=== PATIENT | female | born 1985 | race Caucasian/White ===

== ENCOUNTER 2017-08-20 12:12 | Inpatient (IN) | payer MEDICARE ==
[2017-08-20 12:37] VITALS: BMI 27.8
--- NOTE | 2017-08-20 12:47 | HP ---
CIWA Score - CIWA Score Nausea/Vomitin-Mild Nausea/No Vomiting Muscle Tremors: 3 Anxiety: 4-Mod. Anxious/Guarded Agitation: 1-Slight > Activity Paroxysmal Sweats: 1-Minimal Palms Moist Orientation: 0-Oriented Tacttile Disturbances: 1-Very Mild Itch/Numbness Auditory Disturbances: 1-Very Mild Visual Disturbances: 1-Very Mild Sensitivity Headache: 2-Mild CIWA-Ar Total Score: 15 Admission ROS BHS - HPI Chief Complaint: I did too much yesterday and my heart was ready to burst I want to stop using Allergies/Adverse Reactions: Allergies Allergy/AdvReac Type Severity Reaction Status Date / Time No Known Allergies Allergy Verified 08/20/17 12:44 History of Present Illness: 32 yo woman here for first time detox from alcohol, also using cocaine. History of black outs but no seizures. Exam Limitations: No Limitations - Ebola screening Have you traveled outside of the country in the last 21 days: No Have you had contact with anyone from an Ebola affected area: No Have you been sick,other than usual withdrawal symptoms: No Do you have a fever: No - Review of Systems Constitutional: Loss of Appetite, Malaise, Changes in sleep EENT: reports: No Symptoms Reported Respiratory: reports: No Symptoms reported Cardiac: reports: Chest Tightness GI: reports: Nausea : reports: Frequency Musculoskeletal: reports: No Symptoms Reported Integumentary: reports: No Symptoms Reported Neuro: reports: Headache Endocrine: reports: No Symptoms Reported Hematology: reports: No Symptoms Reported Psychiatric: reports: Judgement Intact, Mood/Affect Appropiate, Orientated x3, Anxious Other Systems: Reviewed and Negative Patient History - Patient Medical History Hx Anemia: No Hx Asthma: Yes Hx Chronic Obstructive Pulmonary Disease (COPD): No Hx Cancer: No Hx Cardiac Disorders: No Hx Congestive Heart Failure: No Hx Hypertension: No Hx Hypercholesterolemia: No Hx Pacemaker: No HX Cerebrovascular Accident: No Hx Seizures: No Hx Dementia: No Hx Diabetes: No Hx Gastrointestinal Disorders: No Hx Liver Disease: No Hx Genitourinary Disorders: No Hx Sexually Transmitted Disorders: No Hx Renal Disease (ESRD): No Hx Thyroid Disease: No Hx Human Immunodeficiency Virus (HIV): No Hx Hepatitis C: No Hx Depression: Yes (on meds) Hx Suicide Attempt: Yes (hospitalized 2014) Hx Bipolar Disorder: No Hx Schizophrenia: No - Patient Surgical History Past Surgical History: Yes Hx Abdominal Surgery: Yes (alexandre carter 2014) Other Surgical History: plastic surgery fat transfer from back to buttocks 2014 - PPD History Previous Implant?: Yes Documented Results: Negative w/o proof PPD to be Administered?: Yes - Reproductive History Patient is a Female of Child Bearing Age (11 -55 yrs old): Yes - Smoking Cessation Smoking history: Former smoker Have you smoked in the past 12 months: No Initiated information on smoking cessation: No - Substance & Tx. History Hx Alcohol Use: Yes Hx Substance Use: Yes Substance Use Type: Alcohol, Cocaine Hx Substance Use Treatment: No - Substances Abused Alcohol Route: Oral Frequency: Daily Amount used: 2 bottles wine; 15 twelve oz beers Age of first use: 8 Date of Last Use: 08/19/17 Cocaine Route: Inhalation Frequency: 3-6 times per week Amount used: 1.5 gm Age of first use: 14 Date of Last Use: 08/19/17 Family Disease History - Family Disease History Family Disease History: Diabetes: Father (living,), Mother (living,), Heart Disease: Mother, Other: Father, Mother, Brother (one - living - healthy), Sister (one - living - healthy), Son (son age 7 - healthy) Admission Physical Exam S - Vital Signs Vital Signs: Vital Signs - 24 hr 08/20/17 12:35 Temperature 97.8 F Pulse Rate 77 Respiratory 18 Rate Blood Pressure 112/73 - Physical General Appearance: Yes: Nourished, Appropriately Dressed, Mild Distress, Anxious HEENTM: Yes: Hearing grossly Normal, Normocephalic, Normal Voice, Pharynx Normal , Other (piercing lower lip) Respiratory: Yes: Normal Breath Sounds, No Respiratory Distress Neck: Yes: No masses,lesions,Nodules, Supple Breast: Yes: Breast Exam Deferred Cardiology: Yes: Regular Rhythm, Regular Rate Abdominal: Yes: Soft Genitourinary: Yes: Frequency Back: Yes: Normal Inspection Musculoskeletal: Yes: full range of Motion, Gait Steady Extremities: Yes: Normal Inspection, Non-Tender Neurological: Yes: Fully Oriented, Alert, Normal Mood/Affect, Normal Response Integumentary: Yes: Normal Color, Warm Lymphatic: Yes: Within Normal Limits - Diagnostic (1) Alcohol dependence with uncomplicated withdrawal Current Visit: Yes Status: Acute (2) Asthma Current Visit: Yes Status: Acute Qualifiers: Asthma severity: mild Asthma persistence: intermittent (3) Cocaine dependence Current Visit: Yes Status: Acute Qualifiers: Substance use status: uncomplicated Qualified Code(s): F14.20 - Cocaine dependence, uncomplicated Cleared for Admission [facility] - Detox or Rehab [facility] Level of Care: Medically Managed Detox Regimen/Protocol: Librium S Breath Alcohol Content Breath Alcohol Content: 0 Urine Pregancy Test - Result Urine Test Results: Negative- NO Line Present Urine Drug Screen - Results Drug Screen Negative: No Urine Drug Screen Results: ABDI-Cocaine
[2017-08-20] MEDS ORDERED: LOPERAMIDE HCL 2 MG CAPSULE PO PRN (12:54)
[2017-08-20] MEDS ORDERED: P-EPHED 60MG/TRIPROLIDI 2.5MG TABLET PO PRN (12:54)
[2017-08-20] MEDS ORDERED: hydrOXYzine PAMOATE 25 MG CAPSULE (FP) PO PRN (12:54)
[2017-08-20] MEDS ORDERED: MAGNESIUM CITRATE 300 ML BOTTLE PO PRN (12:54)
[2017-08-20] MEDS ORDERED: guaiFENesin/D-METHORPHAN HB 10 ML UNIT-DOSE CUPS PO PRN (12:54)
[2017-08-20] MEDS ORDERED: MAG HYDROX/AL HYDROX/SIMETH 30 ML UNIT-DOSE CUP PO PRN (12:54)
[2017-08-20] MEDS ORDERED: ACETAMINOPHEN 325 MG TABLET (FP) PO PRN (12:54)
[2017-08-20] MEDS ORDERED: MENTHOL/PHENOL 1 EACH UD MM PRN (12:54)
[2017-08-20] MEDS ORDERED: IBUPROFEN 400 MG TABLET (FP) PO PRN (12:54)
[2017-08-20] MEDS ORDERED: chlordiazePOXIDE HCL 25 MG CAPSULE PO PRN (12:54)
[2017-08-20] MEDS ORDERED: MAGNESIUM HYDROX 2400MG/30ML ORAL SUSPENSION 30 ML CUP PO PRN (12:54)
[2017-08-20] MEDS ORDERED: ALBUTEROL SO4 18 GM HFA INHALER IH PRN (12:55)
[2017-08-20] MEDS ORDERED: chlordiazePOXIDE HCL 25 MG CAPSULE PO ONE (15:00)
[2017-08-20] MEDS: chlordiazePOXIDE HCL 25 MG CAPSULE PO SCH ×2 (17:43→23:10)
[2017-08-20] MEDS: THIAMINE HCL 100 MG TABLET (FP) PO SCH (23:10)
[2017-08-21 00:23] LABS: URINE APPEARANCE SLCLOUDY; URINE BILIRUBIN NEGATIVE (NEGATIVE); URINE BLOOD 2+ (NEGATIVE); URINE COLOR LTYELLOW; URINE GLUCOSE (UA) NEGATIVE (NEGATIVE); URINE KETONE NEGATIVE (NEGATIVE); URINE LEUK ESTERASE TRACE (NEGATIVE); URINE NITRITE NEGATIVE (NEGATIVE); URINE PROTEIN NEGATIVE (NEGATIVE); URINE UROBILINOGEN NEGATIVE mg/dL (0.2-1.0)
[2017-08-21 00:45] LABS: URINE BACTERIA RARE /hpf (NONE SEEN); URINE MUCUS RARE; URINE RBC 1 /hpf (0-3); URINE WBC <1 /hpf (3-5)
[2017-08-21] MEDS: chlordiazePOXIDE HCL 25 MG CAPSULE PO SCH ×4 (05:36→23:02)
--- NOTE | 2017-08-21 08:56 | EKG ---
Test Reason : Blood Pressure : / mmHG Vent. Rate : 066 BPM Atrial Rate : 066 BPM P-R Int : 142 ms QRS Dur : 084 ms QT Int : 452 ms P-R-T Axes : 048 060 056 degrees QTc Int : 473 ms NORMAL SINUS RHYTHM NORMAL ECG NO PREVIOUS ECGS AVAILABLE Confirmed by MORALES PATHAK MD ([id number]) on 08/21/2017 8:55:55 AM Referred By: Confirmed By:MORALES PATHAK MD
[2017-08-21 10:15] LABS: ALBUMIN 3.4 g/dl (3.4-5.0); ALK PHOS 65 U/L (45-117); ANION GAP 7 (8-16); BILIRUBIN,TOTAL 0.6 mg/dL (0.2-1.0); CALCIUM 8.9 mg/dL (8.5-10.1); CO2 27 mmol/L (21-32); CREATININE 0.8 mg/dL (0.55-1.02); GLUCOSE,RANDOM 90 mg/dL (74-106); SGOT/AST 16 U/L (15-37); SGPT/ALT 23 U/L (12-78); TOT PROT 6.8 g/dl (6.4-8.2)
[2017-08-21 10:19] LABS: MCH 29.7 pg (25.7-33.7); MCHC 33.3 g/dl (32.0-36.0); MEAN CELL VOLUME 89.1 fl (80-96); MEAN PLT VOLUME 8.5 fl (7.5-11.1); PLATELET COUNT 291 K/MM3 (134-434); RDW 13.6 % (11.6-15.6); WHITE BLOOD COUNT 6.4 K/mm3 (4.0-10.0)
--- NOTE | 2017-08-21 10:30 | PN ---
[facility] CIWA - CIWA Score Nausea/Vomitin-No Nausea/No Vomiting Muscle Tremors: 3 Anxiety: 3 Agitation: 4-Moderately Restless Paroxysmal Sweats: 1-Minimal Palms Moist Orientation: 0-Oriented Tacttile Disturbances: 0-None Auditory Disturbances: 0-None Visual Disturbances: 0-None Headache: 0-None Present CIWA-Ar Total Score: 11 BHS Progress Note (SOAP) Subjective: tremor anxiety sweat Objective: 08/21/17 10:29 Vital Signs Temperature 98.4 F 08/21/17 06:58 Pulse Rate 76 08/21/17 06:58 Respiratory Rate 18 08/21/17 06:58 Blood Pressure 101/69 08/21/17 06:58 O2 Sat by Pulse Oximetry (%) Laboratory Last Values WBC 6.4 K/mm3 (4.0-10.0) 08/21/17 08:00 RBC 4.05 M/mm3 (3.60-5.2) 08/21/17 08:00 Hgb 12.0 GM/dL (10.7-15.3) 08/21/17 08:00 Hct 36.1 % (32.4-45.2) 08/21/17 08:00 MCV 89.1 fl (80-96) 08/21/17 08:00 MCH 29.7 pg (25.7-33.7) 08/21/17 08:00 MCHC 33.3 g/dl (32.0-36.0) 08/21/17 08:00 RDW 13.6 % (11.6-15.6) 08/21/17 08:00 Plt Count 291 K/MM3 (134-434) 08/21/17 08:00 MPV 8.5 fl (7.5-11.1) 08/21/17 08:00 Urine Color Ltyellow 08/20/17 14:30 Urine Appearance Slcloudy 08/20/17 14:30 Urine pH 5.0 (5.0-8.0) 08/20/17 14:30 Ur Specific [place] 1.021 (1.001-1.035) 08/20/17 14:30 Urine Protein Negative (NEGATIVE) 08/20/17 14:30 Urine Glucose (UA) Negative (NEGATIVE) 08/20/17 14:30 Urine Ketones Negative (NEGATIVE) 08/20/17 14:30 Urine Blood 2+ (NEGATIVE) H 08/20/17 14:30 Urine Nitrite Negative (NEGATIVE) 08/20/17 14:30 Urine Bilirubin Negative (NEGATIVE) 08/20/17 14:30 Urine Urobilinogen Negative mg/dL (0.2-1.0) 08/20/17 14:30 Urine WBC (Auto) <1 /hpf (3-5) 08/20/17 14:30 Urine RBC (Auto) 1 /hpf (0-3) 08/20/17 14:30 Ur Epithelial Cells Rare /HPF (FEW) 08/20/17 14:30 Urine Bacteria Rare /hpf (NONE SEEN) 08/20/17 14:30 Urine Mucus Rare 08/20/17 14:30 lab noted Assessment: 08/21/17 10:29 withdrawal sx Plan: continue detox
[2017-08-21] MEDS: PRENATAL VITAMINS W/ FOLIC ACID TABLET (FP) PO SCH (10:52)
[2017-08-21 11:31] LABS: URINE LEUK ESTERASE Negative (NEGATIVE)
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
[2017-08-21] MEDS: CITALOPRAM HYDROBROMIDE 20 MG TABLET (FP) PO SCH (23:02)
[2017-08-21] MEDS: THIAMINE HCL 100 MG TABLET (FP) PO SCH (23:02)
[2017-08-22] MEDS: chlordiazePOXIDE HCL 25 MG CAPSULE PO SCH ×2 (06:00→10:57)
[2017-08-22] MEDS: PRENATAL VITAMINS W/ FOLIC ACID TABLET (FP) PO SCH (10:57)
--- NOTE | 2017-08-22 12:57 | PN ---
[facility] CIWA - CIWA Score Nausea/Vomitin-No Nausea/No Vomiting Muscle Tremors: 4-Moderate,w/Arms Extend Anxiety: 3 Agitation: 3 Paroxysmal Sweats: 2 Orientation: 0-Oriented Tacttile Disturbances: 0-None Auditory Disturbances: 0-None Visual Disturbances: 0-None Headache: 0-None Present CIWA-Ar Total Score: 12 BHS Progress Note (SOAP) Subjective: sweats mild shakes interrupted sleep Objective: 08/22/17 12:57 Vital Signs Temperature 97.7 F 08/22/17 10:00 Pulse Rate 82 08/22/17 10:00 Respiratory Rate 20 08/22/17 10:00 Blood Pressure 96/69 08/22/17 10:00 O2 Sat by Pulse Oximetry (%) Laboratory Tests 08/20/17 08/21/17 08/21/17 14:30 08:00 08:00 WBC 6.4 RBC 4.05 Hgb 12.0 Hct 36.1 MCV 89.1 MCH 29.7 MCHC 33.3 RDW 13.6 Plt Count 291 MPV 8.5 Sodium 140 Potassium 4.0 Chloride 106 Carbon Dioxide 27 Anion Gap 7 L BUN 11 Creatinine 0.8 Creat Clearance w eGFR > 60 Random Glucose 90 Calcium 8.9 Total Bilirubin 0.6 AST 16 ALT 23 Alkaline Phosphatase 65 Total Protein 6.8 Albumin 3.4 Urine Color Ltyellow Urine Appearance Slcloudy Urine pH 5.0 Ur Specific [place] 1.021 Urine Protein Negative Urine Glucose (UA) Negative Urine Ketones Negative Urine Blood 2+ H Urine Nitrite Negative Urine Bilirubin Negative Urine Urobilinogen Negative Ur Leukocyte Esterase Negative Urine WBC (Auto) <1 Urine RBC (Auto) 1 Ur Epithelial Cells Rare Urine Bacteria Rare Urine Mucus Rare RPR Titer 08/21/17 08:00 WBC RBC Hgb Hct MCV MCH MCHC RDW Plt Count MPV Sodium Potassium Chloride Carbon Dioxide Anion Gap BUN Creatinine Creat Clearance w eGFR Random Glucose Calcium Total Bilirubin AST ALT Alkaline Phosphatase Total Protein Albumin Urine Color Urine Appearance Urine pH Ur Specific [place] Urine Protein Urine Glucose (UA) Urine Ketones Urine Blood Urine Nitrite Urine Bilirubin Urine Urobilinogen Ur Leukocyte Esterase Urine WBC (Auto) Urine RBC (Auto) Ur Epithelial Cells Urine Bacteria Urine Mucus RPR Titer Nonreactive aaox3 ambulating no acute distress Assessment: 08/22/17 12:57 withdrawal sx Plan: continue detox increase fluids
[2017-08-22] MEDS: chlordiazePOXIDE 5 MG CAPSULE PO SCH ×2 (17:33→22:45)
[2017-08-22] MEDS: THIAMINE HCL 100 MG TABLET (FP) PO SCH (22:44)
[2017-08-22] MEDS: CITALOPRAM HYDROBROMIDE 20 MG TABLET (FP) PO SCH (22:45)
[2017-08-23] MEDS: chlordiazePOXIDE 5 MG CAPSULE PO SCH (05:47)
--- NOTE | 2017-08-23 10:02 | DS ---
[facility] Detox Discharge Summary Admission Date: 08/20/17 Discharge Date: 08/23/17 - History Present History: Alcohol Dependence, Cocaine Dependence - Physical Exam Results Vital Signs: Vital Signs Temperature 97.7 F 08/23/17 06:00 Pulse Rate 65 08/23/17 06:00 Respiratory Rate 18 08/23/17 06:00 Blood Pressure 105/61 08/23/17 06:00 O2 Sat by Pulse Oximetry (%) - Treatment Hospital Course: Detox Protocol Followed, Detoxed Safely, Responded well, Discharged Condition Good, Rehab Referral Accepted - Medication Discharge Medications: Ambulatory Orders Albuterol Sulfate Inhaler - [Ventolin Hfa Inhaler -] 2 inh PO Q4H PRN 08/20/17 Citalopram Hydrobromide [Celexa -] 20 mg PO HS 08/20/17 - Diagnosis (1) Alcohol dependence with uncomplicated withdrawal Current Visit: Yes Status: Chronic (2) Asthma Current Visit: Yes Status: Chronic Qualifiers: Asthma severity: mild Asthma persistence: intermittent (3) Cocaine dependence Current Visit: Yes Status: Chronic Qualifiers: Substance use status: uncomplicated Qualified Code(s): F14.20 - Cocaine dependence, uncomplicated (4) MDD (major depressive disorder), recurrent episode Current Visit: Yes Status: Chronic - AMA Did Patient Leave Against Medical Advice: No
[2017-08-23 10:45] VITALS: BP 100/64; PULSE 87; TEMP 97.9
[2017-08-23] MEDS: PRENATAL VITAMINS W/ FOLIC ACID TABLET (FP) PO SCH (12:06)
[2017-08-23] MEDS ORDERED: chlordiazePOXIDE HCL 10 MG CAPSULE PO SCH (17:00)
== END 2017-08-23 10:30 | disposition home or self-care (01) | DRG 774 ==
LOC: YASAS 12:12 → Y6N 13:31
PROVIDERS: ADMIT Internal Medicine; ATTEND Internal Medicine
PROC: HZ2ZZZZ Detoxification Services for Substance Abuse Treatment (ICD-10-PCS; principal; 2017-08-20)
DX: F10.230 Alcohol dependence with withdrawal, uncomplicated (principal); F14.20 Cocaine dependence, uncomplicated; F33.9 Major depressive disorder, recurrent, unspecified; J45.20 Mild intermittent asthma, uncomplicated
CPT/HCPCS: 36415; 80053; 81003; 81015; 85027; 86593; 93005; 93010

== ENCOUNTER 2017-09-14 08:27 | Inpatient (IN) | payer OTHER ==
[2017-09-14 09:01] VITALS: BMI 31.1
[2017-09-14] MEDS ORDERED: MENTHOL/PHENOL 1 EACH UD MM PRN (12:23)
[2017-09-14] MEDS ORDERED: hydrOXYzine PAMOATE 50 MG CAPSULE (FP) PO PRN (12:23)
[2017-09-14] MEDS ORDERED: ACETAMINOPHEN 325 MG TABLET (FP) PO PRN (12:23)
[2017-09-14] MEDS ORDERED: IBUPROFEN 400 MG TABLET (FP) PO PRN (12:23)
[2017-09-14] MEDS ORDERED: MAG HYDROX/AL HYDROX/SIMETH 30 ML UNIT-DOSE CUP PO PRN (12:23)
[2017-09-14] MEDS ORDERED: LOPERAMIDE HCL 2 MG CAPSULE PO PRN (12:23)
[2017-09-14] MEDS ORDERED: MAGNESIUM CITRATE 300 ML BOTTLE PO PRN (12:23)
[2017-09-14] MEDS ORDERED: MAGNESIUM HYDROX 2400MG/30ML ORAL SUSPENSION 30 ML CUP PO PRN (12:23)
[2017-09-14] MEDS ORDERED: P-EPHED 60MG/TRIPROLIDI 2.5MG TABLET PO PRN (12:23)
[2017-09-14] MEDS ORDERED: guaiFENesin/D-METHORPHAN HB 10 ML UNIT-DOSE CUPS PO PRN (12:23)
--- NOTE | 2017-09-14 12:23 | HP ---
[facility] Rehab Assess/Revision - Admission History Admitted to Rehab from: [facility] - Vital signs Vital Signs: Vital Signs Period Temp Pulse Resp BP Sys/Blake Pulse Ox Last 24 Hr 96.8 F 60 18 100/60 - Findings Detox History & Physical reviewed: Yes Concur with findings: Yes
[2017-09-14] MEDS ORDERED: ALBUTEROL SO4 18 GM HFA INHALER IH PRN (12:25)
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
[2017-09-14 18:40] LABS: BASO % 0.9 % (0-2.0); EOS % 5.3 % (0-4.5); HEMATOCRIT 37.7 % (32.4-45.2); HEMOGLOBIN 12.4 GM/dL (10.7-15.3); LYMPH % 37.4 % (8-40); MCH 29.2 pg (25.7-33.7); MCHC 32.8 g/dl (32.0-36.0); MEAN PLT VOLUME 8.8 fl (7.5-11.1); NEUT % 48.4 % (42.8-82.8); PLATELET COUNT 303 K/MM3 (134-434); RBC 4.24 M/mm3 (3.60-5.2); RDW 13.6 % (11.6-15.6); WHITE BLOOD COUNT 6.9 K/mm3 (4.0-10.0)
[2017-09-14 18:48] LABS: URINE APPEARANCE SLCLOUDY; URINE BILIRUBIN NEGATIVE (NEGATIVE); URINE BLOOD 2+ (NEGATIVE); URINE COLOR LTYELLOW; URINE GLUCOSE (UA) NEGATIVE (NEGATIVE); URINE KETONE NEGATIVE (NEGATIVE); URINE LEUK ESTERASE TRACE (NEGATIVE); URINE NITRITE NEGATIVE (NEGATIVE); URINE PROTEIN NEGATIVE (NEGATIVE); URINE UROBILINOGEN NEGATIVE mg/dL (0.2-1.0)
[2017-09-14 18:51] LABS: ALBUMIN 3.6 g/dl (3.4-5.0); ANION GAP 9 (8-16); BILIRUBIN,TOTAL 0.3 mg/dL (0.2-1.0); BLOOD UREA NITROGEN 12 mg/dL (7-18); CALCIUM 8.8 mg/dL (8.5-10.1); CHLORIDE 107 mmol/L (98-107); CO2 25 mmol/L (21-32); CREATININE 0.7 mg/dL (0.55-1.02); GLUCOSE,RANDOM 88 mg/dL (74-106); POTASSIUM 4.2 mmol/L (3.5-5.1); SGOT/AST 15 U/L (15-37); SGPT/ALT 22 U/L (12-78); SODIUM 141 mmol/L (136-145); TOT PROT 7.3 g/dl (6.4-8.2)
[2017-09-14 18:52] LABS: ALK PHOS 69 U/L (45-117)
[2017-09-14 20:27] LABS: EPI CELLS MODERATE /HPF (FEW); URINE MUCUS RARE
[2017-09-14] MEDS: THIAMINE HCL 100 MG TABLET (FP) PO SCH (21:12)
[2017-09-15] MEDS: CITALOPRAM HYDROBROMIDE 20 MG TABLET (FP) PO SCH (10:07)
[2017-09-15] MEDS: PRENATAL VITAMINS W/ FOLIC ACID TABLET (FP) PO SCH (10:07)
[2017-09-15 11:09] LABS: INR 1.07 (0.82-1.09); PROTHROMBIN TIME (PATIENT) 12.1 SEC (9.98-11.88)
--- NOTE | 2017-09-15 12:32 | EKG ---
Test Reason : Blood Pressure : / mmHG Vent. Rate : 066 BPM Atrial Rate : 066 BPM P-R Int : 158 ms QRS Dur : 080 ms QT Int : 434 ms P-R-T Axes : 043 053 054 degrees QTc Int : 454 ms NORMAL SINUS RHYTHM WITH SINUS ARRHYTHMIA NORMAL ECG WHEN COMPARED WITH ECG OF 14-SEP-2017 22:25, PREMATURE ATRIAL COMPLEXES ARE NO LONGER PRESENT Confirmed by DONTAE BOB MD ([id number]) on 09/15/2017 12:32:34 PM Referred By: Sherry LIN Confirmed By:DONTAE BOB MD
--- NOTE | 2017-09-15 12:34 | EKG ---
Test Reason : Blood Pressure : / mmHG Vent. Rate : 060 BPM Atrial Rate : 060 BPM P-R Int : 152 ms QRS Dur : 078 ms QT Int : 460 ms P-R-T Axes : 043 057 053 degrees QTc Int : 460 ms SINUS RHYTHM WITH PREMATURE ATRIAL COMPLEXES POSSIBLE LEFT ATRIAL ENLARGEMENT NONSPECIFIC T WAVE ABNORMALITY PROLONGED QT ABNORMAL ECG WHEN COMPARED WITH ECG OF 20-AUG-2017 14:34, PREMATURE ATRIAL COMPLEXES ARE NOW PRESENT Confirmed by PAULINO VALDOVINOS, DONTAE ([id number]) on 09/15/2017 12:33:43 PM Referred By: Confirmed By:DONTAE BOB MD
[2017-09-15] MEDS: THIAMINE HCL 100 MG TABLET (FP) PO SCH (21:58)
[2017-09-16] MEDS: CITALOPRAM HYDROBROMIDE 20 MG TABLET (FP) PO SCH (09:58)
[2017-09-16] MEDS: PRENATAL VITAMINS W/ FOLIC ACID TABLET (FP) PO SCH (09:59)
[2017-09-16] MEDS ORDERED: COLLOIDAL OATMEAL 1 BAR EACH TP PRN (11:52)
[2017-09-16] MEDS: SENNOSIDES 8.6MG TABLET (FP) PO SCH ×2 (12:55→21:27)
[2017-09-16] MEDS: THIAMINE HCL 100 MG TABLET (FP) PO SCH (21:27)
[2017-09-17] MEDS: CITALOPRAM HYDROBROMIDE 20 MG TABLET (FP) PO SCH (09:56)
[2017-09-17] MEDS: PRENATAL VITAMINS W/ FOLIC ACID TABLET (FP) PO SCH (09:56)
[2017-09-17] MEDS: SENNOSIDES 8.6MG TABLET (FP) PO SCH ×2 (09:56→21:17)
[2017-09-17] MEDS: THIAMINE HCL 100 MG TABLET (FP) PO SCH (21:17)
[2017-09-18] MEDS: CITALOPRAM HYDROBROMIDE 20 MG TABLET (FP) PO SCH (09:50)
[2017-09-18] MEDS: SENNOSIDES 8.6MG TABLET (FP) PO SCH ×2 (09:50→21:19)
[2017-09-18] MEDS: PRENATAL VITAMINS W/ FOLIC ACID TABLET (FP) PO SCH (09:50)
[2017-09-18] MEDS: THIAMINE HCL 100 MG TABLET (FP) PO SCH (21:19)
[2017-09-19] MEDS: SENNOSIDES 8.6MG TABLET (FP) PO SCH ×2 (09:58→21:13)
[2017-09-19] MEDS: PRENATAL VITAMINS W/ FOLIC ACID TABLET (FP) PO SCH (09:58)
[2017-09-19] MEDS: CITALOPRAM HYDROBROMIDE 20 MG TABLET (FP) PO SCH (09:58)
[2017-09-19] MEDS: THIAMINE HCL 100 MG TABLET (FP) PO SCH (21:13)
[2017-09-20] MEDS: CITALOPRAM HYDROBROMIDE 20 MG TABLET (FP) PO SCH (10:05)
[2017-09-20] MEDS: PRENATAL VITAMINS W/ FOLIC ACID TABLET (FP) PO SCH (10:05)
[2017-09-20] MEDS: SENNOSIDES 8.6MG TABLET (FP) PO SCH ×2 (10:05→21:24)
[2017-09-20] MEDS: THIAMINE HCL 100 MG TABLET (FP) PO SCH (21:24)
[2017-09-21] MEDS: CITALOPRAM HYDROBROMIDE 20 MG TABLET (FP) PO SCH (09:57)
[2017-09-21] MEDS: PRENATAL VITAMINS W/ FOLIC ACID TABLET (FP) PO SCH (09:57)
[2017-09-21] MEDS: SENNOSIDES 8.6MG TABLET (FP) PO SCH ×2 (09:57→21:15)
--- NOTE | 2017-09-21 16:23 | PN ---
S Progress Note Note: patient is not a risk for active tb and does not require isolation, PPD _ no fever nights sweats or chills reported. d/w infection control. and nursing.
[2017-09-21] MEDS: THIAMINE HCL 100 MG TABLET (FP) PO SCH (21:15)
[2017-09-22] MEDS: CITALOPRAM HYDROBROMIDE 20 MG TABLET (FP) PO SCH (10:02)
[2017-09-22] MEDS: PRENATAL VITAMINS W/ FOLIC ACID TABLET (FP) PO SCH (10:02)
[2017-09-22] MEDS: SENNOSIDES 8.6MG TABLET (FP) PO SCH ×2 (10:02→21:29)
[2017-09-22] MEDS: THIAMINE HCL 100 MG TABLET (FP) PO SCH (21:29)
[2017-09-23] MEDS: CITALOPRAM HYDROBROMIDE 20 MG TABLET (FP) PO SCH (09:55)
[2017-09-23] MEDS: SENNOSIDES 8.6MG TABLET (FP) PO SCH ×2 (09:55→21:08)
[2017-09-23] MEDS: PRENATAL VITAMINS W/ FOLIC ACID TABLET (FP) PO SCH (09:56)
[2017-09-23] MEDS: THIAMINE HCL 100 MG TABLET (FP) PO SCH (21:08)
[2017-09-24] MEDS: SENNOSIDES 8.6MG TABLET (FP) PO SCH ×2 (09:54→21:23)
[2017-09-24] MEDS: CITALOPRAM HYDROBROMIDE 20 MG TABLET (FP) PO SCH (09:54)
[2017-09-24] MEDS: PRENATAL VITAMINS W/ FOLIC ACID TABLET (FP) PO SCH (09:54)
[2017-09-24] MEDS: THIAMINE HCL 100 MG TABLET (FP) PO SCH (21:23)
[2017-09-25] MEDS: PRENATAL VITAMINS W/ FOLIC ACID TABLET (FP) PO SCH (09:42)
[2017-09-25] MEDS: CITALOPRAM HYDROBROMIDE 20 MG TABLET (FP) PO SCH (09:42)
[2017-09-25] MEDS: SENNOSIDES 8.6MG TABLET (FP) PO SCH ×2 (09:42→21:18)
[2017-09-25] MEDS: THIAMINE HCL 100 MG TABLET (FP) PO SCH (21:18)
[2017-09-26] MEDS: SENNOSIDES 8.6MG TABLET (FP) PO SCH (09:39)
[2017-09-26] MEDS: PRENATAL VITAMINS W/ FOLIC ACID TABLET (FP) PO SCH (09:39)
[2017-09-26] MEDS: CITALOPRAM HYDROBROMIDE 20 MG TABLET (FP) PO SCH (09:39)
[2017-09-27 06:36] VITALS: BP 107/80; PULSE 79; TEMP 98.2
--- NOTE | 2017-09-27 09:08 | PN ---
Psychiatric Progress Note Vital Signs: Vital Signs Period Temp Pulse Resp BP Sys/Blake Pulse Ox Last 24 Hr 98.2 F 79 18-20 107/80 Current Medications: Active Medications Generic Name Dose Route Start Last Admin Trade Name Freq PRN Reason Stop Dose Admin Acetaminophen 650 mg 09/14/17 12:23 09/26/17 07:57 Tylenol - PO 650 mg Q4H PRN Administration PAIN Al Hydroxide/Mg Hydroxide 30 ml 09/14/17 12:23 Mylanta Oral Suspension - PO Q6H PRN DYSPEPSIA Albuterol Sulfate 2 puff 09/14/17 12:25 Ventolin Hfa Inhaler - IH Q4H PRN WHEEZING Citalopram Hydrobromide 20 mg 09/15/17 10:00 09/26/17 09:39 Celexa - PO Not Given DAILY KELLY Colloidal Oatmeal 1 applic 09/16/17 11:52 Aveeno Soap - TP DAILY PRN HYGEINE Eucalyptus/Menthol/Phenol/Sorbitol 1 each 09/14/17 12:23 Cepastat Lozenge - MM Q4H PRN SORE THROAT Guaifenesin 10 ml 09/14/17 12:23 Robitussin Dm - PO Q6H PRN COUGH Hydroxyzine Pamoate 50 mg 09/14/17 12:23 Vistaril - PO Q4H PRN AGITATION Loperamide HCl 4 mg 09/14/17 12:23 Imodium - PO Q6H PRN DIARRHEA Magnesium Citrate 300 ml 09/14/17 12:23 Citroma - PO Q48H PRN CONSTIPATION Magnesium Hydroxide 30 ml 09/14/17 12:23 Milk Of Magnesia - PO DAILY PRN CONSTIPATION Multivit/Folic Acid/Iron 1 tab 09/15/17 10:00 09/26/17 09:39 Vitamins (Sjr) - PO Not Given DAILY KELLY Pseudoephedrine/Triprolidine 1 combo 09/14/17 12:23 Actifed - PO TID PRN NASAL CONGESTION Senna 1 tab 09/16/17 12:32 09/26/17 09:39 Senna - PO 1 tab BID KELLY Administration Thiamine HCl 100 mg 09/14/17 22:00 09/25/17 21:18 Vitamin B1 - PO 100 mg HS KELLY Administration Psychiatric Treatment Plan - Problem List (1) Alcohol dependence Current Visit: Yes (2) Cocaine dependence Current Visit: Yes (3) MDD (major depressive disorder), recurrent episode Current Visit: No (4) Asthma Current Visit: No Qualifiers: Asthma severity: mild Asthma persistence: intermittent
--- NOTE | 2017-09-27 09:12 | PN ---
Psychiatric Progress Note Vital Signs: Vital Signs Period Temp Pulse Resp BP Sys/Blake Pulse Ox Last 24 Hr 98.2 F 79 18-20 107/80 Date of Session: 09/27/17 Chief Complaint:: Discharge Note HPI: Patient addresing Alcohol and Cocaine Dependence comorbid with MDD, recurrent episode ROS: Asthma Current Medications: Active Medications Generic Name Dose Route Start Last Admin Trade Name Freq PRN Reason Stop Dose Admin Acetaminophen 650 mg 09/14/17 12:23 09/26/17 07:57 Tylenol - PO 650 mg Q4H PRN Administration PAIN Al Hydroxide/Mg Hydroxide 30 ml 09/14/17 12:23 Mylanta Oral Suspension - PO Q6H PRN DYSPEPSIA Albuterol Sulfate 2 puff 09/14/17 12:25 Ventolin Hfa Inhaler - IH Q4H PRN WHEEZING Citalopram Hydrobromide 20 mg 09/15/17 10:00 09/26/17 09:39 Celexa - PO Not Given DAILY KELLY Colloidal Oatmeal 1 applic 09/16/17 11:52 Aveeno Soap - TP DAILY PRN HYGEINE Eucalyptus/Menthol/Phenol/Sorbitol 1 each 09/14/17 12:23 Cepastat Lozenge - MM Q4H PRN SORE THROAT Guaifenesin 10 ml 09/14/17 12:23 Robitussin Dm - PO Q6H PRN COUGH Hydroxyzine Pamoate 50 mg 09/14/17 12:23 Vistaril - PO Q4H PRN AGITATION Loperamide HCl 4 mg 09/14/17 12:23 Imodium - PO Q6H PRN DIARRHEA Magnesium Citrate 300 ml 09/14/17 12:23 Citroma - PO Q48H PRN CONSTIPATION Magnesium Hydroxide 30 ml 09/14/17 12:23 Milk Of Magnesia - PO DAILY PRN CONSTIPATION Multivit/Folic Acid/Iron 1 tab 09/15/17 10:00 09/26/17 09:39 Vitamins (Sjr) - PO Not Given DAILY KELLY Pseudoephedrine/Triprolidine 1 combo 09/14/17 12:23 Actifed - PO TID PRN NASAL CONGESTION Senna 1 tab 09/16/17 12:32 09/26/17 09:39 Senna - PO 1 tab BID KELLY Administration Thiamine HCl 100 mg 09/14/17 22:00 09/25/17 21:18 Vitamin B1 - PO 100 mg HS KELLY Administration Current Side Effect: No Lab tests ordered: Yes Lab tests reviewed: Yes Provider note:: Patient has completed this program today. She has met hertreatment goals and [facility]She verbalized understanding of the negative consequences of her addiction and from her participation in this program, she has learrned the importance of establising a sober support network in order to maintain abstinence. She responded well to Celexa 20 mg po daily. Script for 30 days supply of medication is electronically transmitted to [facility] at [address] [place] [address]. She is stable for discharge today Total face to face time:: 35 Mental Status Exam - Mental Status Exam Alert and Oriented to: Time, Place, Person Cognitive Function: Fair Patient Appearance: Well Groomed Mood: Hopeful, Euthymic Affect: Appropriate Patient Behavior: Cooperative Speech Pattern: Clear Voice Loudness: Normal Thought Process: Intact, Goal Oriented Thought Disorder: Not Present Hallucinations: Denies Suicidal Ideation: Denies Homicidal Ideation: Denies Insight/Judgement: Fair Sleep: Well Appetite: Good Muscle strength/Tone: Normal Gait/Station: Normal Psychiatric Treatment Plan - Problem List (1) Alcohol dependence Current Visit: Yes (2) Cocaine dependence Current Visit: Yes (3) MDD (major depressive disorder), recurrent episode Current Visit: No (4) Asthma Current Visit: No Qualifiers: Asthma severity: mild Asthma persistence: intermittent Initial treatment plan: Patient is discharged today and referred to [facility] for [facility] treatment
[2017-09-27] MEDS: CITALOPRAM HYDROBROMIDE 20 MG TABLET (FP) PO SCH (09:36)
[2017-09-27] MEDS: SENNOSIDES 8.6MG TABLET (FP) PO SCH (09:38)
[2017-09-27] MEDS: PRENATAL VITAMINS W/ FOLIC ACID TABLET (FP) PO SCH (10:33)
== END 2017-09-27 09:50 | disposition home or self-care (01) | DRG 772 ==
LOC: YASAS 08:27 → Y3W 11:51 → Y3E 09-15 16:06 → Y3W 09-15 16:48
PROVIDERS: ADMIT Psychiatry & Neurology Psychiatry; ATTEND Psychiatry & Neurology Psychiatry
PROC: HZ42ZZZ Group Counseling for Substance Abuse Treatment, Cognitive-Behavioral (ICD-10-PCS; principal; 2017-09-14)
DX: F10.20 Alcohol dependence, uncomplicated (principal); F12.20 Cannabis dependence, uncomplicated; F33.9 Major depressive disorder, recurrent, unspecified; J45.20 Mild intermittent asthma, uncomplicated
CPT/HCPCS: 36415; 80053; 81003; 81015; 85025; 85610; 86593; 87070; 87116; 87205; 87206; 93005; 93010